=== PATIENT | male | born 1985 | race Caucasian/White ===

== ENCOUNTER 2019-02-04 01:29 | Emergency (ER) | payer OTHER ==
[2019-02-04] MEDS ORDERED: LIDOCAINE 1%/EPI 1:100,000 20 ML VIAL. ONE (01:35)
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
[2019-02-04] MEDS ORDERED: AMOX875T PO (02:31)
--- NOTE | 2019-02-04 02:38 | RAD ---
PQRS Compliance statement: One or more of the following individualized dose reduction techniques were utilized for this examination: 1. Automated exposure control. 2. Adjustment of the mA and/or kV according to patient size. 3. Use of iterative reconstruction technique. Indication:Trauma. TECHNIQUE: CT head without IV contrast COMPARISON: None FINDINGS: No pathologic extra-axial or intra-axial fluid collection. The ventricles and basal cisterns are within normal limits. No acute intracranial bleed. 1.2 cm thick left lateral frontal scalp hematoma. No acute calvarial fracture. IMPRESSION: No acute intracranial bleed or calvarial fracture. Small left lateral frontal scalp hematoma. Indication:Trauma TECHNIQUE: CT of the maxillofacial bones without IV contrast multiplanar reformats. COMPARISON: None FINDINGS: The nasal septum is midline. Bilateral zygomatic arches are within normal limits. Bilateral external auditory canals and inner ear cavities are within normal limits. Nasal bones within normal limits. The lenses, globes, extraocular muscles and intraorbital fat are within normal limits. Mucoperiosteal thickening seen in the right maxillary sinus. Rest of the paranasal sinuses and mastoid air cells are clear. Mandible is within normal limits. The noncontrast appearance of the suprahyoid neck soft tissue is within normal limits. IMPRESSION: No acute fractures. Indication:Trauma TECHNIQUE: CT of the cervical spine without IV contrast with multiplanar reformats. COMPARISON:None FINDINGS: Cervical spine is in normal anatomic alignment. Atlantoaxial joint interval is preserved. No compression deformity. Facet joints are in normal anatomic alignment. No acute fractures. Noncontrast appearance of the neck soft tissue is within normal limits. IMPRESSION: No acute fractures. Electronically signed by: Frederick West DO (02/04/2019 2:34 AM) [facility]
--- NOTE | 2019-02-04 02:39 | RAD ---
Report for this examination included under CT head and cervical spine. Electronically signed by: Frederick West DO (02/04/2019 2:35 AM) [facility]
[2019-02-04 02:42] VITALS: BP 135/83
--- NOTE | 2019-02-04 05:41 | RAD ---
PROCEDURE: CHEST AP ONLY CLINICAL INDICATION: Shortness of breath COMPARISON: None FINDINGS: No pneumothorax identified. Cardiac and mediastinal contours unremarkable. No pulmonary consolidation or acute airspace disease. No acute osseous abnormalities identified. IMPRESSION: No pulmonary consolidation or acute airspace disease. Electronically signed by: Frederick West DO (02/04/2019 5:38 AM) [facility]
== END 2019-02-04 03:08 | disposition home or self-care (01) ==
LOC: ER 01:29
DX: S01.81XA Laceration without foreign body of other part of head, initial encounter (principal); J32.0 Chronic maxillary sinusitis; F10.229 Alcohol dependence with intoxication, unspecified; E11.9 Type 2 diabetes mellitus without complications; Y90.9 Presence of alcohol in blood, level not specified; Y08.89XA Assault by other specified means, initial encounter; Y93.89 Activity, other specified; Y92.89 Other specified places as the place of occurrence of the external cause; Y99.8 Other external cause status
CPT/HCPCS: 12011; 70450; 70486; 71045; 72125; 99284-25

== ENCOUNTER 2019-02-05 19:37 | Inpatient (IN) | payer MEDICAID, OTHER ==
[~2019-02-05] VITALS: Ht 190.5 cm; Wt 125.2 kg
[~2019-02-05 19:37] MED LIST: AMOX875T PO
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
[2019-02-05] MEDS ORDERED: MVI, ADULT NO.4 WITH VIT K 10 ML, FOLIC ACID SYRINGE for ER 1 MG, THIAMINE INJ 100 MG i... IV STA ×4 (19:50)
[2019-02-05 20:21] LABS: AMPHETAMINE/METHAMPHETAMINE NEG (NEG); BARBITURATES NEG (NEG); BENZODIAZEPINES NEG (NEG); CANNABINOIDS NEG (NEG); COCAINE NEG (NEG); METHADONE NEG (NEG); OPIATES NEG (NEG); PHENCYCLIDINE NEG (NEG)
[2019-02-05 20:24] LABS: BACTERIA,URINE 0 /HPF (0-FEW); BILIRUBIN,URINE NEG (NEG); CLARITY,URINE HAZY; COLOR,URINE YELLOW; GLUCOSE,URINE NEG (NEG); NITRITE,URINE NEG (NEG); RBC,URINE 0 /HPF (0-2); SQUAMOUS EPITHELIAL CELL,UR OCC /LPF; UROBILINOGEN,URINE 0.2 mg/dL (0.2 mg/dL); WBC,URINE 0 /HPF (0-4)
[2019-02-05 20:25] LABS: BASO # 0.1 x10^3/uL (0.0-0.2); BASO % 1 % (0-3); EOS # 0.3 x10^3/uL (0.0-0.7); EOS % 2 % (0-3); HEMATOCRIT 54.5 % (39.0-53.0); LYMPH % 45 % (24-48); MEAN CORPUSCULAR HEMOGLOBIN 34 pg (25-35); MEAN CORPUSCULAR HGB CONC 35 g/dL (31-37); MEAN CORPUSCULAR VOLUME 98 fL (79-100); MONO # 0.8 x10^3/uL (0.0-1.1); MONO % 6 % (0-9); NEUT # 6.1 x10^3uL (1.8-7.7); NEUT % 46 % (31-73); PLATELET COUNT 154 x10^3/uL (140-400); RED BLOOD COUNT 5.57 x10^6/uL (4.30-5.70); RED CELL DISTRIBUTION WIDTH 13.1 % (11.5-14.5); WHITE BLOOD COUNT 13.3 x10^3/uL (4.0-11.0)
[2019-02-05 20:31] LABS: SALIC 0.5 mg/dL (2.8-20.0)
[2019-02-05 20:34] LABS: ETHANOL 524 mg/dL (0-10)
[2019-02-05 20:35] LABS: ACETAMIN < 2 mcg/mL (10-30)
[2019-02-05] MEDS ORDERED: MVI, ADULT NO.4 WITH VIT K 10 ML VIAL IV ONE (20:35)
[2019-02-05] MEDS ORDERED: THIAMINE 200 MG/2 ML VIAL. IV ONE (20:35)
[2019-02-05] MEDS ORDERED: FOLIC ACID 5 MG/ML SYRINGE for ER IV ONE (20:35)
[2019-02-05 20:41] LABS: CALCIUM 8.5 mg/dL (8.5-10.1); CREATININE 0.9 mg/dL (0.7-1.3); MAGNESIUM 2.2 mg/dL (1.8-2.4); POTASSIUM 3.9 mmol/L (3.5-5.1)
--- NOTE | 2019-02-05 20:54 | RAD ---
CT Head W/O Contrast: History: Head injury Comparison: none Axial images were obtained without contrast. The cody and white matter appears normal and symmetrical for the patients age. There is no mass effect, extraaxial fluid collections or hydrocephalus. There is no gross bleed. There is no focal loss of cody-white matter distinction to suggest acute ischemia, i.e. stroke. There is an air-fluid level in the right maxillary sinus. Impression: Right maxillary sinusitis. No acute intracranial findings. End impression CT C-Spine without contrast: Clinical History: Pain status post fall Technique: Axial helical images of the cervical spine were obtained without contrast, axial coronal and sagittal reconstruction was performed. Findings: There is no loss of vertebral body stature. There is no prevertebral soft tissue swelling. The vertebral bodies are well aligned. The C1-C2 relationship is normal. The visualized osseous structures appear normal. Impression: No acute findings. Clinical correlation suggested. PQRS Compliance Statement: One or more of the following individualized dose reduction techniques were utilized for this examination: 1. Automated exposure control 2. Adjustment of the mA and/or kV according to patient size 3. Use of iterative reconstruction technique Electronically signed by: Jv Green III, MD (02/05/2019 8:51 PM) [facility]
[2019-02-05] MEDS ORDERED: ONDANSETRON PF 4 MG/2 ML VIAL. IV PRN (21:30)
--- NOTE | 2019-02-05 21:32 | EKG ---
[address] [address] Test Date: 2019-02-05 Test Time: 19:42:24 Pat Name: MARJORIE FAUST Department: Room: Gender: M Surgical Attendant: : 1985 Requested By: ERMIAS SCHWARZ Order Number: [id number] Reading MD: Imtiaz Eagle Measurements Intervals [place] Rate: 110 P: 44 FL: 164 QRS: 85 QRSD: 96 T: 7 QT: 320 QTc: 438 Interpretive Statements SINUS TACHYCARDIA Electronically Signed On 02-08-2019 16:07:00 CDT by Imtiaz Eagle
[2019-02-05 22:15] VITALS: BP 135/95
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
[2019-02-05] MEDS: IV RINGERS SOLUTION,LACTATED 1,000 ML IV SCH (22:43)
[2019-02-06 03:00] VITALS: BP 107/52
[2019-02-06] MEDS: IV RINGERS SOLUTION,LACTATED 1,000 ML IV SCH ×3 (03:45→16:15)
[2019-02-06] MEDS ORDERED: ATOR20TA PO (05:25)
[2019-02-06] MEDS ORDERED: BUSP30TA PO (05:25)
[2019-02-06] MEDS ORDERED: MULT1TAB52 PO (05:25)
[2019-02-06] MEDS ORDERED: CYAN10005 PO (05:25)
[2019-02-06 06:43] LABS: CALCIUM 8.1 mg/dL (8.5-10.1); CREATININE 0.8 mg/dL (0.7-1.3); POTASSIUM 3.5 mmol/L (3.5-5.1)
[2019-02-06 06:46] LABS: BASO % 1 % (0-3); EOS # 0.2 x10^3/uL (0.0-0.7); EOS % 2 % (0-3); HEMOGLOBIN 15.9 g/dL (13.0-17.5); LYMPH % 37 % (24-48); MEAN CORPUSCULAR HEMOGLOBIN 35 pg (25-35); MEAN CORPUSCULAR HGB CONC 35 g/dL (31-37); MEAN CORPUSCULAR VOLUME 98 fL (79-100); MONO # 0.6 x10^3/uL (0.0-1.1); MONO % 8 % (0-9); NEUT # 4.4 x10^3uL (1.8-7.7); NEUT % 54 % (31-73); PLATELET COUNT 116 x10^3/uL (140-400); RED BLOOD COUNT 4.61 x10^6/uL (4.30-5.70); RED CELL DISTRIBUTION WIDTH 12.9 % (11.5-14.5); WHITE BLOOD COUNT 8.3 x10^3/uL (4.0-11.0)
--- NOTE | 2019-02-06 08:31 | RAD ---
Portable chest, 02/05/2019: HISTORY: Mental status change Comparison is made to a study from 02/04/2019. The heart size and pulmonary vascularity are normal. The lungs are clear. There is no evidence of pleural fluid. IMPRESSION: No acute cardiopulmonary abnormality is detected. Electronically signed by: Matt Pablo MD (02/06/2019 8:28 AM) [facility]
[2019-02-06] MEDS: FLUTICASONE 50MCG/NASAL SPRAY 16GM BOTTLE. NS SCH ×2 (08:58→09:00)
[2019-02-06] MEDS: CYANOCOBALAMIN (VITAMIN B-12) 1,000 MCG TABLET. PO SCH ×2 (08:58→09:00)
[2019-02-06] MEDS: busPIRone 15 MG TABLET. PO SCH ×2 (08:58→14:15)
[2019-02-06] MEDS ORDERED: MVI, ADULT NO.4 WITH VIT K 10 ML, FOLIC ACID SYRINGE for ER 1 MG, THIAMINE INJ 100 MG i... IV SCH ×4 (09:00)
[2019-02-06 11:16] VITALS: BP 140/64
[2019-02-06 14:16] VITALS: BP 157/72
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
--- NOTE | 2019-02-06 16:17 | NUR ---
Plan is to discharge home, patient cooperative at this time and plans to [facility].
--- NOTE | 2019-02-06 17:20 | NUR ---
PT ambulated off unit at this time to friends car independently with personal belongings. IV removed. DC instructions given to patient.
[2019-02-06] MEDS ORDERED: ATORVASTATIN CALCIUM 20 MG TABLET PO SCH (21:00)
[2019-02-06] MEDS ORDERED: LACTOBACILLUS RHAMNOSUS GG 1 CAPSULE. PO SCH (21:00)
== END 2019-02-06 17:22 | disposition home or self-care (01) | DRG 897 ==
LOC: ER 19:37 → ICU 21:00
PROVIDERS: ADMIT Family Medicine; ATTEND Internal Medicine
DX: F10.129 Alcohol abuse with intoxication, unspecified (principal); E11.9 Type 2 diabetes mellitus without complications; F10.10 Alcohol abuse, uncomplicated; F17.210 Nicotine dependence, cigarettes, uncomplicated; I10 Essential (primary) hypertension; K74.60 Unspecified cirrhosis of liver; Y90.8 Blood alcohol level of 240 mg/100 ml or more
CPT/HCPCS: 36415; 51702; 70450; 71045; 72125; 80048; 80307; 80329; 81001; 82140; 82550; 82553; 83735; 83880; 84484; 85025; 85610; 85730; 87641; 93005; 96365; G0480; J0696; J7120; 82003; 99285-25